=== PATIENT | female | born 1940 | race Caucasian/White ===

== ENCOUNTER → 2018-07-19 10:56 | Outpatient (CLI) | payer OTHER, SELFPAY | PROVIDERS: Family Provider Physician Assistant; PCP Physician Assistant; Visit Provider Family Medicine | DX: Z13.9 Encounter for screening, unspecified (principal) ==

== ENCOUNTER → 2018-07-19 11:04 | Outpatient (CLI) | payer OTHER, SELFPAY ==
[2018-07-19 11:58] LABS: Alanine Aminotransferase 17 IU/L (9-52); Albumin 4.4 g/dL (3.5-5.0); Albumin Globulin Ratio 1.6 (1.0-2.8); Alkaline Phosphatase 64 U/L (38-126); Aspartate Aminotransferase 21 IU/L (14-36); BUN Creatinine Ratio 18.9 (6-22); Bilirubin Total 1.5 mg/dL (0.2-1.3); Blood Urea Nitrogen 17 mg/dL (7-17); Calcium 9.9 mg/dL (8.4-10.2); Carbon Dioxide 27 mmol/L (22-32); Chloride 103 mmol/L (98-107); Cholesterol 122 mg/dL (140-199); Estimated Glomerular Filt Rate > 60.0 mL/min (>60); Globulin 2.8 g/dL (1.7-4.1); Glucose 91 mg/dL (80-110); HDL Cholesterol 38 mg/dL (40-60); HEMOLYSIS < 15 (0-50); LDL Cholesterol Calculated 58 mg/dL (<100); Sodium 144 mmol/L (137-145); Total Protein 7.2 g/dL (6.3-8.2); Triglycerides 129 mg/dL (35-150)
[2018-07-19 11:59] LABS: Add Manual Diff / Slide Review NO; Basophils Percent Auto 0.2 % (0-2); Eosinophils Percent Auto 2.1 % (2-4); Hematocrit 38.9 % (36-46); Hemoglobin 13.5 g/dL (12.0-16.0); Lymphocytes Percent Auto 35.6 % (25-40); Mean Corpuscular HGB Conc 34.7 % (30-36); Mean Corpuscular Hemoglobin 29.7 PG (26-34); Mean Corpuscular Volume 85.4 fL (80-100); Monocytes Percent Auto 9.4 % (3-14); Neutrophils Absolute Auto 3300 /uL (3000-5900); Neutrophils Percent Auto 52.7 % (50-75); Platelet Count 283 X10^3/uL (150-400); Red Blood Cell Count 4.55 X10^6/uL (4.0-5.2); Red Cell Distribution Width 13.9 % (11.6-14.8); White Blood Cell Count 6.2 X10^3/uL (4.5-11.0)
[2018-07-19 12:28] LABS: Thyroid Stimulating Hormone 4.08 uIU/mL (0.47-4.68)
[2018-07-19 12:40] LABS: Appearance Urine UA CLEAR; Bilirubin Urine UA NEGATIVE (NEGATIVE); Color Urine UA YELLOW; Glucose Urine UA NEGATIVE (Normal); Ketones Urine UA NEGATIVE (NEGATIVE); Leukocyte Esterase Urine UA NEGATIVE (NEGATIVE); Nitrite Urine UA NEGATIVE (Negative); Occult Blood Urine UA 1+ (Negative); Protein Urine UA NEGATIVE (Negative); Specific Gravity Urine UA <=1.005 (1.000-1.035); Urobilinogen Urine UA 0.2 E.U./dL (0.2); pH Urine UA 5.5 (4.5-8.0)
== END ==
PROVIDERS: Family Provider Physician Assistant; PCP Physician Assistant; Visit Provider Family Medicine
DX: I10 Essential (primary) hypertension (principal); Z01.818 Encounter for other preprocedural examination; Z51.81 Encounter for therapeutic drug level monitoring
CPT/HCPCS: 36415; 80053; 80061; 81003; 84443; 85025

== ENCOUNTER → 2019-06-05 10:29 | Outpatient (CLI) | payer OTHER, SELFPAY ==
[2019-06-05 11:29] LABS: Alanine Aminotransferase 18 IU/L (9-52); Albumin 4.4 g/dL (3.5-5.0); Albumin Globulin Ratio 1.4 (1.0-2.8); Alkaline Phosphatase 78 U/L (38-126); Aspartate Aminotransferase 26 IU/L (14-36); BUN Creatinine Ratio 23.3 (6-22); Bilirubin Total 1.5 mg/dL (0.2-1.3); Blood Urea Nitrogen 21 mg/dL (7-17); Carbon Dioxide 28 mmol/L (22-32); Chloride 101 mmol/L (98-107); Estimated Glomerular Filt Rate > 60.0 mL/min (>60); Globulin 3.1 g/dL (1.7-4.1); Glucose 98 mg/dL (80-110); HEMOLYSIS < 15 (0-50); Potassium 3.8 mmol/L (3.4-5.1); Sodium 138 mmol/L (137-145); Total Protein 7.5 g/dL (6.3-8.2)
[2019-06-05 12:01] LABS: Creatinine Urine Random 59.2 mg/dL
[2019-06-05 12:06] LABS: Microalbumi Creatinin Ratio Ur 10.1 ug/mg CR (<30); Microalbumin Urine Random < 0.6 mg/dL (0-1.6)
== END ==
PROVIDERS: PCP Physician Assistant; Visit Provider Physician Assistant
DX: I10 Essential (primary) hypertension (principal)
CPT/HCPCS: 36415; 80053; 82043; 82570

== ENCOUNTER 2020-04-20 12:34 | Emergency (ER) | payer OTHER, SELFPAY ==
[2020-04-20] VITALS (9 sets, daily range): BP systolic 149–229; BP diastolic 62–98; PULSE 63–84; RESP 14–22; TEMP 36.9; O2SAT 96–100; BMI 27.4
--- NOTE | 2020-04-20 13:20 | DI.RAD.S_ITS ---
PROCEDURE: XR CHEST 1V INDICATIONS: chest pain TECHNIQUE: One view of the chest was acquired. COMPARISON: None. FINDINGS: Surgical changes and devices: None. Lungs and pleura: Lungs are clear. No pleural effusions or pneumothorax. Mediastinum: The cardiac contours are within normal limits. The aorta demonstrates calcification and tortuosity. Bones and chest wall: Age-appropriate bony degenerative changes are seen. No suspicious bony lesions. Overlying soft tissues appear unremarkable. IMPRESSION: Unremarkable portable chest study for age, without a cause of the patient's chest pain identified. Dictated by: Moreno Muro M.D. on 04/20/2020 at 12:50 Approved by: Moreno Muro M.D. on 04/20/2020 at 12:51
--- NOTE | 2020-04-20 13:24 | ED_ITS ---
HPI - Chest Pain General Chief Complaint: Chest Pain Stated Complaint: Chest Pain, Tingling in Arms, High BP Time Seen by Provider: 04/20/20 13:24 History of Present Illness HPI narrative: 79-year-old woman with a history of hypertension presents with left arm chest and axilla pressure and tightness that she awoke with this morning. It waxed and waned over the course of the morning she was able to get up and take a shower and did not have any difficulties. It does not change with deep breathing. She noted while she was eating breakfast that seem to get worse and then improved. On presentation to the emergency department she states that the pain is not present however when the blood pressure cuff applied to her left upper arm she again continues to complain of pain. Blood pressure cuff is moved and she states the pain is no longer there. It is a bit challenging to pin her down on exact details of her specific complaints and physical findings today Related Data Previous Rx's Medication Instructions Recorded estradiol See Rx Instructions VAG BEDTIME 07/20/19 #42.5 gram hydrochlorothiazide 12.5 mg tablet 12.5 mg PO DAILY #90 tab 07/20/19 losartan 100 mg tablet 100 mg PO DAILY #30 tab 12/21/19 oxyquinoline 0.025 %-sodium lauryl 1 each VAG .1xw #113.4 gram 02/12/20 sulfate 0.01 % vaginal gel Allergies Allergy/AdvReac Type Severity Reaction Status Date / Time amoxicillin [AMOXICILLIN] Allergy Severe YEAST Verified 01/25/20 09:30 INFECTION Review of Systems Review of Systems Narrative: Pertinent positive and negative findings as per HPI Remainder of review of systems is otherwise unremarkable for Constitutional: Fevers, chills, weakness ENT: No sore throat, neck pain, ear pain Respiratory: Cough, wheeze, dyspnea GI: Nausea, vomiting, diarrhea, change in bowel habits, black or bloody stools : Dysuria, hematuria, flank pain MS: Muscle weakness, numbness, joint swelling or warmth Skin: Rashes, nonhealing lesions Neuro: Syncope, dizziness, tingling Patient History Medical History Anxiety (Chronic) Atrophic vulva (Acute) Branch retinal vein occlusion of left eye (Resolved Unknown) Glaucoma (Chronic) Herpes (Chronic) History of adrenal adenoma (Resolved) Hypertension (Chronic) Lichen sclerosus (Acute) Migraines (Chronic) Pelvic relaxation (Acute) Surgical History H/O abdominal hysterectomy (Acute) Hx of hysterectomy (Resolved Unknown) [place] teeth extracted (Acute) Family History Brother Essential hypertension Mother Essential hypertension Father No problems noted. Social History Smoking Status: Never smoker second hand exposure: No alcohol intake: never substance use type: does not use Smoking Status: Never smoker Substance Use Type: does not use Exam Narrative Exam Narrative: General: Healthy appearing, in no acute distress. Able to give a complete and coherent history. Well-nourished well-developed HEENT: Moist mucous membranes, normal sclera with reactive pupils, Neck: No JVD, supple Respiratory: Lungs are clear to auscultation, no wheezing no rales no rhonchi. Full and symmetrical air movement Cardiac: Regular rate and rhythm no murmurs no bruits Abdomen: Soft nontender good bowel tones, no flank pain Skin: Warm and dry, no rashes Neurologic: Grossly neurologically intact with no obvious asymmetries or abnormalities Extremities: No trauma, well perfused Psych: Cooperative, appropriate insight and affect Initial Vital Signs Initial Vital Signs: Vital Signs Temperature 98.4 F 04/20/20 12:53 Pulse Rate 84 04/20/20 12:53 Respiratory Rate 16 04/20/20 12:53 Blood Pressure 229/98 H 04/20/20 12:53 Pulse Oximetry 99 04/20/20 12:53 Course Orders Ordered: ED Orders 04/20/20 12:54 Complete Blood Count AUTO DIFF Stat Comprehensive Metabolic Panel Stat Lipase Stat Partial Thromboplastin Time Stat Prothrombin Time INR Stat Troponin & CK Cardiac Panel Stat 04/20/20 13:20 XR chest 1V Stat Nitroglycerin (Nitrostat) 0.4 mg SL [id number] PRN PRN Reason: Chest Pain Last Admin: 04/20/20 14:04 Dose: 0.4 mg Documented by: CSIEDLE Discontinued Medications Aspirin (Aspirin Chew) 324 mg PO NOW ONE Stop: 04/20/20 13:54 Last Admin: 04/20/20 14:04 Dose: 324 mg Documented by: MALU Vital Signs Vital signs: Vital Signs - 8 hr 04/20/20 12:53 04/20/20 12:54 04/20/20 13:00 Temperature 98.4 F Pulse Rate 84 70 66 Respiratory Rate 16 18 14 Blood Pressure 229/98 H Pulse Oximetry 99 100 100 04/20/20 13:22 04/20/20 13:30 04/20/20 14:00 Temperature Pulse Rate 71 69 63 Respiratory Rate 17 17 22 Blood Pressure 198/84 H 171/79 H 174/79 H Pulse Oximetry 99 99 98 04/20/20 14:04 04/20/20 14:11 Temperature Pulse Rate 63 76 Respiratory Rate 22 Blood Pressure 174/79 H 149/62 H Pulse Oximetry 96 MDM - Chest Pain Medical Records Data Attestation: I reviewed the patient's medical records. Lab Data Attestation: I reviewed the patient's lab results. Result diagrams: 04/20/20 12:54 04/20/20 12:54 Labs: Lab Results 04/20/20 04/20/20 04/20/20 Range/Units 12:54 12:54 12:54 WBC 8.2 (4.5-11.0) X10^3/uL RBC 4.67 (4.0-5.2) X10^6/uL Hgb 13.9 (12.0-16.0) g/dL Hct 40.8 (36-46) % MCV 87.5 (80-100) fL MCH 29.9 (26-34) PG MCHC 34.1 (30-36) % RDW 13.4 (11.6-14.8) % Plt Count 271 (150-400) X10^3/uL Neut % (Auto) 55.4 (50-75) % Lymph % (Auto) 33.1 (25-40) % Brooks % (Auto) 9.0 (3-14) % Eos % (Auto) 2.1 (2-4) % Baso % (Auto) 0.4 (0-2) % Neut # (Auto) 4600 (3983-1767) /uL Lymph # (Auto) 2700 (6745-3436) /uL Brooks # (Auto) 700 (0-900) /uL Eos # (Auto) 200 (0-450) /uL Baso # (Auto) 0 (0-100) /uL PT 11.4 (10.1-12.7) SECONDS INR 1.0 (0.9-1.3) APTT 33 (26.4-36.2) SECONDS Sodium 136 L (137-145) mmol/L Potassium 3.4 (3.4-5.1) mmol/L Chloride 101 (98-107) mmol/L Carbon Dioxide 30 (22-32) mmol/L BUN 25 H (7-17) mg/dL Creatinine 0.92 (0.52-1.04) mg/dL Estimated GFR 59.2 L (>60) mL/min BUN/Creatinine Ratio 27.2 H (6-22) Glucose 100 (80-110) mg/dL Calcium 10.2 (8.4-10.2) mg/dL Total Bilirubin 1.6 H (0.2-1.3) mg/dL AST 28 (14-36) IU/L ALT 14 (<35) IU/L Alkaline Phosphatase 73 (38-126) U/L Total Creatine Kinase 64 (30-135) U/L CK-MB (CK-2) TNP CK-MB (CK-2) Rel Index TNP Troponin I < 0.012 (0.01-0.034) ng/mL Total Protein 7.8 (6.3-8.2) g/dL Albumin 4.4 (3.5-5.0) g/dL Globulin 3.4 (1.7-4.1) g/dL Albumin/Globulin Ratio 1.3 (1.0-2.8) Lipase 137 (23-300) U/L Imaging Data Chest x-ray: Radiologist's Impression: FINDINGS: Surgical changes and devices: None. Lungs and pleura: Lungs are clear. No pleural effusions or pneumothorax. Mediastinum: The cardiac contours are within normal limits. The aorta demonstrates calcification and tortuosity. Bones and chest wall: Age-appropriate bony degenerative changes are seen. No suspicious bony lesions. Overlying soft tissues appear unremarkable. IMPRESSION: Unremarkable portable chest study for age, without a cause of the p atient's chest pain identified. Dictated by: Moreno Muro M.D. on 04/20/2020 at 12:50 ECG Data Attestation: I personally reviewed and interpreted this ECG as follows: Interpretation: Sinus rhythm at a rate of77 Left axis deviation with left bundle-branch block No acute ischemic changes and does not need sgarbossa criteria for ischemia MDM Narrative Medical decision making narrative: 79-year-old woman awoke with left arm tightness this morning. Not reliably reproducible and cardiac workup at this point is unremarkable. Troponin was drawn 7 hours after onset of symptoms and is unremarkable. Blood pressure was slightly elevated will ask her to make sure she continues with her usual blood pressure medications. In the emergency room she was given a single sublingual nitroglycerin and 4 baby aspirin. Her perception of the changes after the nitroglycerin is perseverating and difficult to pin down but my best interpretation of her responses suggest that it made no difference to the arm tightness and the arm tightness has completely resolved Discharge Plan Departure Patient Disposition: Home Clinical Impression: Atypical chest pain Instructions: DI for Atypical Chest Pain Activity Restrictions/Additional Instructions: Thank you for coming in today And he was very appropriate to evaluate this pressure sensation in your upper arm and axilla today. Your cardiac workup did not suggest it was a heart attack. Your EKG was normal and your lab work was reassuring. Her chest x-ray was equally reassuring. There is no evidence of infection in your lungs or otherwise and your kidneys and liver are working nicely at this time. Your blood pressure has come down nicely and you have told me that your pressure pain sensation in the arm is gone. I believe it is safe for you to go home at this time. Please do continue all of your home medications as prescribed. I would encourage you to follow-up with your primary care physician Prescriptions: No Action hydrochlorothiazide 12.5 mg tablet 12.5 mg PO DAILY Qty: 90 RF: 3 estradiol 0.01 % (0.1 mg/gram) cream See Rx Instructions VAG BEDTIME Qty: 42.5 RF: 3 losartan 100 mg tablet 100 mg PO DAILY Qty: 30 RF: 0 oxyquinoline-sod.lauryl sulfat 0.025-0.01 % gel 1 each VAG .1xw Qty: 113.4 RF: 2 Referrals: Ginger Rodriguez PA-C [Primary Care Provider] -
[2020-04-20 13:29] LABS: Add Manual Diff / Slide Review NO; Basophils Absolute Auto 0 /uL (0-100); Basophils Percent Auto 0.4 % (0-2); Eosinophils Absolute Auto 200 /uL (0-450); Eosinophils Percent Auto 2.1 % (2-4); Hematocrit 40.8 % (36-46); Hemoglobin 13.9 g/dL (12.0-16.0); Lymphocytes Absolute Auto 2700 /uL (1100-4500); Lymphocytes Percent Auto 33.1 % (25-40); Mean Corpuscular HGB Conc 34.1 % (30-36); Mean Corpuscular Hemoglobin 29.9 PG (26-34); Mean Corpuscular Volume 87.5 fL (80-100); Monocytes Absolute Auto 700 /uL (0-900); Neutrophils Absolute Auto 4600 /uL (1500-7000); Neutrophils Percent Auto 55.4 % (50-75); Platelet Count 271 X10^3/uL (150-400); Red Blood Cell Count 4.67 X10^6/uL (4.0-5.2); Red Cell Distribution Width 13.4 % (11.6-14.8); White Blood Cell Count 8.2 X10^3/uL (4.5-11.0)
[2020-04-20 13:30] LABS: Prothrombin Time 11.4 SECONDS (10.1-12.7)
[2020-04-20 13:33] LABS: PTT Partial Thromboplastin Tim 33 SECONDS (26.4-36.2)
[2020-04-20 13:35] LABS: Alanine Aminotransferase 14 IU/L (<35); Albumin 4.4 g/dL (3.5-5.0); Albumin Globulin Ratio 1.3 (1.0-2.8); Alkaline Phosphatase 73 U/L (38-126); Aspartate Aminotransferase 28 IU/L (14-36); BUN Creatinine Ratio 27.2 (6-22); Bilirubin Total 1.6 mg/dL (0.2-1.3); Blood Urea Nitrogen 25 mg/dL (7-17); Calcium 10.2 mg/dL (8.4-10.2); Carbon Dioxide 30 mmol/L (22-32); Chloride 101 mmol/L (98-107); Creatine Kinase 64 U/L (30-135); Estimated Glomerular Filt Rate 59.2 mL/min (>60); Globulin 3.4 g/dL (1.7-4.1); Glucose 100 mg/dL (80-110); HEMOLYSIS < 15 (0-50); Lipase 137 U/L (23-300); Potassium 3.4 mmol/L (3.4-5.1); Sodium 136 mmol/L (137-145); Total Protein 7.8 g/dL (6.3-8.2)
[2020-04-20 13:47] LABS: Troponin I < 0.012 ng/mL (0.01-0.034)
[2020-04-20] MEDS: NITROGLYCERIN 0.4 MG SL TAB SL (14:04)
[2020-04-20] MEDS: ASPIRIN 81 MG CHEW TAB 324 MG PO (14:04)
== END 2020-04-20 14:49 | disposition home or self-care (01) ==
PROVIDERS: Emergency Provider Emergency Medicine; PCP Physician Assistant
DX: R07.89 Other chest pain (principal); I10 Essential (primary) hypertension
CPT/HCPCS: 36415; 71045; 80053; 82550; 83690; 84484; 85025; 85610; 85730; 93005; 99284